=== PATIENT | female | born 1955 | race Caucasian/White ===

== ENCOUNTER → 2017-01-21 | Outpatient (CLI) | payer BC ==
[~2017-01-21] MED LIST: ATORVASTATIN CA20 MG PO; BUSPIRONE HCL15 MG PO; CALTRATE 600+D1 EAC1 PO; ESCITALOPRAM OX10 MG PO; METOPROLOL SUC100 MG PO; SERTRALINE HCL100 MG PO
--- NOTE | ~2017-01-21 | EKG ---
PATIENT: KALEY LOPEZ UNIT #: [id number] Ventricular Rate: 59 BPM Atrial Rate: 59 BPM P-R Interval: 148 ms QRS Duration: 60 ms Q-T Interval: 444 ms QTC Calculation(Bezet): 439 ms P Castell: 112 degrees Calculated R Castell: 19 degrees Calculated T Castell: 18 degrees Diagnosis Line: Sinus bradycardia Diagnosis Line: Junctional ST depression, probably normal Diagnosis Line: Borderline ECG Diagnosis Line: No previous ECGs available Diagnosis Line: Confirmed by TIM ANTONY MD ([id number]) on Diagnosis Line: 01/22/2017 8:47:34 AM INTERPRETING MD: ARPAN HO
[2017-01-21 11:19] LABS: HEMATOCRIT 38.9 % (35.0-45.0); HEMOGLOBIN 12.8 gm/dL (12.0-16.0); MEAN CELL VOLUME 88.1 FL (83-96); MEAN PLATELET VOLUME 7.4 FL (6.5-11.5); RED BLOOD COUNT 4.42 X10e (3.90-5.30); RED CELL DISTRIBUTION WIDTH 13.4 % (11.0-15.5); WHITE BLOOD COUNT 6.9 X10e3 (4.0-10.5)
[2017-01-21 11:49] LABS: CALCIUM SERUM 9.8 mg/dL (8.4-10.2); CREATININE SERUM 0.4 mg/dL (0.6-1.4); GLOM FILT RATE Estimated 110.9 mL/min (>60); POTASSIUM 4.3 mmol/L (3.5-5.1)
== END | disposition home or self-care (01) ==
LOC: CAMB 10:38
PROVIDERS: Specialist
DX: Z01.818 Encounter for other preprocedural examination (principal); K42.9 Umbilical hernia without obstruction or gangrene
CPT/HCPCS: 36415; 80048; 85027; 93005

== ENCOUNTER → 2017-01-28 | Day surgery (SDC) | payer BC ==
--- NOTE | ~2017-01-28 | OR ---
Unit #: [id number] #: [id number] Patient: KALEY LOPEZ [id number] [facility] [address], [place] [address] [id number] O MR#: [id number] NAME: KALEY LOPEZ ROOM: Date of Procedure: 01/28/2017 Admission Date: 01/28/2017 Surgeon: Pito Nguyen M.D. : 1955 Attending Physician: Pito Nguyen M.D. Referring Physician: Pito Nguyen M.D. Primary Care Physician: Ulises Luu M.D. OPERATIVE REPORT PREOPERATIVE DIAGNOSIS Periumbilical incisional hernia. POSTOPERATIVE DIAGNOSIS Periumbilical incisional hernia. PROCEDURE PERFORMED Open repair with 8-cm Ventralex mesh. ANESTHESIA General endotracheal anesthesia. ESTIMATED BLOOD LOSS 20 mL. INDICATIONS FOR PROCEDURE Ms. Lopez is a 61-year-old female, who has a large and enlarging hernia at the umbilicus. The patient has had a previous laparoscopic cholecystectomy and has an incision at the level of the umbilicus, which probably contributed to the hernia given its size. DESCRIPTION OF PROCEDURE The patient was admitted to [facility], positively identified, and transported to the operating room, and after induction of general endotracheal anesthesia, she received IV antibiotics per SCIP protocol and was prepped and draped in usual sterile fashion. Transverse incision below the umbilicus was made, the umbilical skin was from the hernia sac and the hernia sac was dissected down to the level of the fascia. Hernia sac was then opened and excised at the level of the fascia, some omentum was attached to the hernia sac and it was dissected free and reduced back into the peritoneal cavity. I palpated to the defect and no other adhesions to the anterior abdominal wall were present. Once the entire hernia sac was excised an 8-cm Ventralex patch was placed into the peroneal cavity. I palpated to ensure there was no intraabdominal contents between the mesh and anterior abdominal wall and then the mesh was secured circumferentially using 0 Ethibond interrupted sutures. The fascia was closed as well and then an umbilicoplasty was performed. 0.5% Marcaine with epinephrine was infiltrated in each trocar site. Soft tissue was closed with 3-0 Vicryl interrupted sutures and the skin was closed with 4-0 Monocryl interrupted sutures. Dermabond skin adhesive was used as an occlusive bandage. Sponges and needle counts were correct x3. The patient tolerated the procedure well and was transported Unit #: [id number] #: [id number] Patient: KALEY LOPEZ to the recovery room in stable condition. Findings and postoperative instructions were discussed with her family. Dictated by... Kenia Robledo/gloria TD: 01/29/2017 01:23 JOB #: [id number] OPERATIVE REPORT Page 1 of 1 X Pito Nguyen MD X PROCEDURE OPERATIVE NOTE
== END | disposition home or self-care (01) ==
LOC: CSUR 09:03
DX: K42.9 Umbilical hernia without obstruction or gangrene (principal); K21.9 Gastro-esophageal reflux disease without esophagitis; R01.1 Cardiac murmur, unspecified; Z90.49 Acquired absence of other specified parts of digestive tract
CPT/HCPCS: J0690; J2250; J2405; J3010